=== PATIENT | male | born 1960 | race Caucasian/White ===

== ENCOUNTER 2016-06-19 20:54 | Emergency (ER) | payer OTHER ==
[~2016-06-19] VITALS: Ht 170.2 cm; Wt 54.4 kg
[~2016-06-19 20:54] MED LIST: ZOFRAN4 M1 SL
--- NOTE | 2016-06-19 21:06 | ED AMS/SEIZURE/WEAK/DIZZY ---
History of Present Illness General Chief Complaint: ETOH/Drug Related Complaint Stated Complaint: BIBA ETOH Source: patient, EMS Exam Limitations: no limitations Vital Signs & Intake/Output Vital Signs & Intake/Output Vital Signs Date Time Temp Pulse Resp B/P Pulse O2 O2 Flow FiO2 Ox Delivery Rate 06/19 2340 96.7 64 16 102/63 98 Room Air 06/19 2132 96.2 77 16 94/60 95 Room Air ED Intake and Output 06/20 0000 06/19 1200 Intake Total 0 Output Total Balance 0 Intake, Oral 0 Patient 120 lb Weight Allergies Coded Allergies: NO KNOWN ALLERGIES (05/03/14) NKA PER ANTIBIOTIC ORDER SHEET OF 05/03/14 ([facility]) Reconcile Medications Ondansetron (Zofran Odt) 4 MG ODT 1 ODT SL Q6P PRN NAUSEA Triage Note: PT BIBA FROM HOME S/P DRINKING WITH FAMILY TONIGHT AND HE STOPPED TALKING. PT HAS HX OF ALCOHOL ABUSE. PER EMS PT WAS GIVEN 4 OF ZOFRAN IM. PT IS PRIMARILY [place] SPEAKING. UNSURE AT THIS TIME OF HOW MUCH HE DRANK. Triage Nurses Notes Reviewed? yes Onset: Gradual Duration: minute(s):, hour(s): Timing: single episode today Injury Environment: home Severity: moderate Modifying Factors: Improves With: rest. Associated Symptoms: etoh tonight, increased lethargy HPI: 56 yo gentleman h/o etoh abuse, presents with mental status change. Per the medics, he was drinking vodka in his garage. He became more lethargic and somnolent. His family called 911. The medics arrived. He was arousable to sternal rub, had no focal weakness. No seizure activity. He is otherwise well. Past History Medical History Any Pertinent Medical History? see below for history Neurological: NONE EENT: NONE Cardiovascular: hyperlipidemia Respiratory: NONE Gastrointestinal: NONE Hepatic: NONE Renal: NONE Musculoskeletal: NONE Psychiatric: NONE Endocrine: NONE Surgical History Surgical History: CARPAL TUNNEL Psychosocial History What is your primary language Greenlandic Family History Hx Contributory? No Review of Systems Review of Systems Constitutional: Reports: no symptoms. EENTM: Reports: no symptoms. Respiratory: Reports: no symptoms. Cardiovascular: Reports: no symptoms. GI: Reports: no symptoms. Genitourinary: Reports: no symptoms. Musculoskeletal: Reports: no symptoms. Skin: Reports: no symptoms. Neurological/Psychological: Reports: no symptoms. Hematologic/Endocrine: Reports: no symptoms. Immunologic/Allergic: Reports: no symptoms. All Other Systems: Reviewed and Negative Physical Exam Physical Exam General Appearance: well developed/nourished, lethargic Head: atraumatic, normal appearance Eyes: Bilateral: normal appearance, PERRL, EOMI. Ears, Nose, Throat: normal pharynx, normal ENT inspection Neck: normal inspection, supple, full range of motion Respiratory: normal breath sounds, chest non-tender, no respiratory distress, quiet respiration, lungs clear Cardiovascular: regular rate/rhythm Gastrointestinal: normal bowel sounds, soft, non-tender Back: normal inspection, normal range of motion Extremities: normal range of motion, pelvis stable Neurologic/Psych: no motor/sensory deficits, awake, lethargic but easily arousable. Reflexes: 1+: bicep (R), bicep (L), knee (R), knee (L). Skin: intact, normal color, warm/dry Core Measures ACS in differential dx? No CVA/TIA Diagnosis: No Severe Sepsis Present: No Septic Shock Present: No Progress Differential Diagnosis: alcohol intoxication, dehydration, drug intoxication, electrolyte imbalance, intracranial Hem., intracranial mass/tumor Plan of Care: Orders Procedure Date/time Status URINE DRUG SCREEN FOR ER ONLY 06/19 2106 Complete ETHANOL 06/19 2106 Complete COMPREHENSIVE METABOLIC PANEL 06/19 2106 Complete CBC WITHOUT DIFFERENTIAL 06/19 2106 Complete Laboratory Tests 06/19/160: Urine Opiates Screen < 100.00, Methadone Screen < 40, Barbiturate Screen < 60, Ur Phencyclidine Scrn < 6.00, Amphetamines Screen < 100, U Benzodiazepines Scrn < 85, Urine Cocaine Screen < 50, Urine Cannabis Screen < 5.00 06/19/162121: Anion Gap 14, Estimated GFR > 60, BUN/Creatinine Ratio 12.9, Glucose 125 H, Calcium 9.2, Total Bilirubin 0.4, AST 55, ALT 80 H, Alkaline Phosphatase 78, Total Protein 8.1, Albumin 4.4, Globulin 3.7, Albumin/Globulin Ratio 1.2, CBC w Diff NO MAN DIFF REQ, RBC 4.90, MCV 91.4, MCH 31.5 H, RDW 12.9, MPV 7.6, Gran % 53.6, Lymphocytes % 36.8, Monocytes % 8.6, Eosinophils % 0.5, Basophils % 0.5, Absolute Granulocytes 3.8, Absolute Lymphocytes 2.6, Absolute Monocytes 0.6, Absolute Eosinophils 0, Absolute Basophils 0, PUBS MCHC 34.5, Serum Alcohol 363.0 Diagnostic Imaging: Viewed by Me: CT Scan. Discussed w/RAD: CT Scan. Radiology Impression: head ct w/o contrast... indeterminant finding... full report below, head ct w/ contrast... no acute disease... consistent with blood vessels. Initial ED EKG: none Comments: PATIENT: LEYLA VELAZQUEZ PRESENT AGE: 56 PATIENT ACCOUNT NO: [id number] : 60 LOCATION: [facility] ORDERING PHYSICIAN: NATHAN HOROWITZ MD SERVICE DATE: 06/19/16 EXAM TYPE: CAT - CT HEAD W IV CONTRAST EXAMINATION: CT HEAD WITH CONTRAST CLINICAL INFORMATION: Altered mental status. Questionable mass within the left cavernous sinus. COMPARISON: Noncontrast head CT 06/19/2016. TECHNIQUE: Contiguous axial imaging was performed from the skull base to vertex following the administration of 95 mL of Optiray 320 intravenous contrast. DLP: 600 mGy-cm. FINDINGS: No acute intracranial abnormality. No acute intracranial hemorrhage, mass or mass effect or abnormal extra-axial fluid collections. The density within the dural venous sinuses is within normal limits. The ventricles are normal in size, without hydrocephalus. There are no focal areas of hypoattenuation within a vascular distribution to suggest acute transcortical ischemia. The basilar cisterns are patent. No abnormal intraparenchymal enhancement is identified. There is no abnormal enhancement within the sella or within the cavernous sinuses. The previously noted questionable mass within the left cavernous sinus appears to correspond to vessels within the cavernous sinus. The intracranial vessels appear to be grossly patent and opacified by intravenous contrast. No acute calvarial abnormality is identified. Soft tissues appear unremarkable. The imaged paranasal sinuses and mastoid air cells are well aerated. IMPRESSION: No acute intracranial abnormality. No enhancing intra-axial or extra-axial masses. No enhancing masses within the sella or cavernous sinus. The recently noted questionable mass within the left cavernous sinus appears to correspond to vessels within the cavernous sinus. DICTATED BY: YANIRA MONAEDORON DATE/TIME DICTATED:06/19/162330 [employer] TRUCK BUILDER:GUADALUPE DATE/TIME TRANSCRIBED:06/19/162330 CONFIDENTIAL, DO NOT COPY WITHOUT APPROPRIATE AUTHORIZATION. <Electronically signed in Other Vendor System> SIGNED BY: DORON DOYLE MD 06/19/162337 PATIENT: LEYLA VELAZQUEZ PRESENT AGE: 56 PATIENT ACCOUNT NO: [id number] : 60 LOCATION: [facility] ORDERING PHYSICIAN: NATHAN HOROWITZ MD SERVICE DATE: 06/19/16 EXAM TYPE: CAT - CT HEAD WO IV CONTRAST EXAMINATION: CT HEAD WITHOUT CONTRAST CLINICAL INFORMATION: Altered mental status. COMPARISON: None. TECHNIQUE: Contiguous axial imaging was performed from the skull base to vertex without intravenous administration of contrast. DLP: 600 mGy-cm. FINDINGS: Noncontrast CT imaging of the brain demonstrates questionable mild fullness within the left lateral aspect of the sella/left cavernous sinus measuring approximately 1.5 x 2.1 cm (series 2, image 13). No acute intracranial hemorrhage, mass effect or abnormal extra-axial fluid collections are identified. The density within the dural venous sinuses is within normal limits. The ventricles are normal in size, without hydrocephalus. There are no focal areas of hypoattenuation within a vascular distribution to suggest acute transcortical ischemia. The basilar cisterns are patent. No acute calvarial abnormality is identified. Soft tissues appear unremarkable. The imaged paranasal sinuses and mastoid air cells are well aerated. IMPRESSION: Questionable masslike density within the left lateral aspect of the sella/left cavernous sinus. This finding is indeterminate. An underlying mass or vascular anomaly within this region cannot be entirely excluded. Contrast-enhanced MRI of the brain would be helpful in further evaluation. If contrast-enhanced MRI of the brain is not available, a contrast enhanced CT of the brain would be helpful in further evaluation. This critical result was discussed with Dr. Nathan rose at 10:11 PM on 06/19/2016 and it was ascertained that the content and urgency of the report was understood at the time of direct communication. DICTATED BY: DORON DOYLE MD DATE/TIME DICTATED:06/19/162203 [employer] TR[employer] BUILDER:GUADALUPE DATE/TIME TRANSCRIBED:06/19/162203 CONFIDENTIAL, DO NOT COPY WITHOUT APPROPRIATE AUTHORIZATION. <Electronically signed in Other Vendor System> SIGNED BY: YANIRA MONAE,DORON 06/19/16 3509 Departure Departure Disposition: HOME OR SELF CARE Condition: Stable Clinical Impression Primary Impression: Alcohol intoxication Referrals: AMELIA MONAE,FABIANO Ramírez (PCP/Family) Referred to [facility] as new patient No Departure Forms: Customer Survey General Discharge Information Comments 06/20/16, 0:13am... pt awake and alert, well appearing... i discussed the ct findings with his son and patient. He does not wish detox. He ambulates well and will go home in company of his son. He is stable for discharge. I discussed initial ct scan finding with radiologist who suggested ct scan with iv contrast.
[2016-06-19 21:28] LABS: ABSOLUTE BASOPHIL COUNT 0 /CUMM (0.0-0.2); ABSOLUTE EOSINOPHIL COUNT 0 /CUMM (0.0-0.7); ABSOLUTE GRANULOCYTE CT 3.8 /CUMM (1.4-6.5); ABSOLUTE LYMPH COUNT 2.6 /CUMM (1.2-3.4); ABSOLUTE MONOCYTE COUNT 0.6 /CUMM (0.10-0.60); BASOPHIL % 0.5 % (0.0-2.0); EOSINOPHIL % 0.5 % (0-5); GRANULOCYTE % 53.6 % (42.2-75.2); HEMATOCRIT 44.8 % (42-52); MEAN CORPUSCULAR HGB 31.5 PG (27.0-31.0); MEAN CORPUSCULAR HGB CONC 34.5 G/DL (33.0-37.0); MEAN CORPUSCULAR VOLUME 91.4 FL (80.0-94.0); MEAN PLATELET VOLUME 7.6 FL (7.4-10.4); PLATELET COUNT 329 /CUMM (130-400); RBC DISTRIBUTION WIDTH 12.9 % (11.5-14.5); WHITE BLOOD CELL COUNT 7.2 /CUMM (4.8-10.8)
--- NOTE | 2016-06-19 22:23 | CT SCAN REPORT ---
EXAMINATION: CT HEAD WITHOUT CONTRAST CLINICAL INFORMATION: Altered mental status. COMPARISON: None. TECHNIQUE: Contiguous axial imaging was performed from the skull base to vertex without intravenous administration of contrast. DLP: 600 mGy-cm. FINDINGS: Noncontrast CT imaging of the brain demonstrates questionable mild fullness within the left lateral aspect of the sella/left cavernous sinus measuring approximately 1.5 x 2.1 cm (series 2, image 13). No acute intracranial hemorrhage, mass effect or abnormal extra-axial fluid collections are identified. The density within the dural venous sinuses is within normal limits. The ventricles are normal in size, without hydrocephalus. There are no focal areas of hypoattenuation within a vascular distribution to suggest acute transcortical ischemia. The basilar cisterns are patent. No acute calvarial abnormality is identified. Soft tissues appear unremarkable. The imaged paranasal sinuses and mastoid air cells are well aerated. IMPRESSION: Questionable masslike density within the left lateral aspect of the sella/left cavernous sinus. This finding is indeterminate. An underlying mass or vascular anomaly within this region cannot be entirely excluded. Contrast-enhanced MRI of the brain would be helpful in further evaluation. If contrast-enhanced MRI of the brain is not available, a contrast enhanced CT of the brain would be helpful in further evaluation. This critical result was discussed with Dr. Nathan rose at 10:11 PM on 06/19/2016 and it was ascertained that the content and urgency of the report was understood at the time of direct communication.
--- NOTE | 2016-06-19 23:38 | CT SCAN REPORT ---
EXAMINATION: CT HEAD WITH CONTRAST CLINICAL INFORMATION: Altered mental status. Questionable mass within the left cavernous sinus. COMPARISON: Noncontrast head CT 06/19/2016. TECHNIQUE: Contiguous axial imaging was performed from the skull base to vertex following the administration of 95 mL of Optiray 320 intravenous contrast. DLP: 600 mGy-cm. FINDINGS: No acute intracranial abnormality. No acute intracranial hemorrhage, mass or mass effect or abnormal extra-axial fluid collections. The density within the dural venous sinuses is within normal limits. The ventricles are normal in size, without hydrocephalus. There are no focal areas of hypoattenuation within a vascular distribution to suggest acute transcortical ischemia. The basilar cisterns are patent. No abnormal intraparenchymal enhancement is identified. There is no abnormal enhancement within the sella or within the cavernous sinuses. The previously noted questionable mass within the left cavernous sinus appears to correspond to vessels within the cavernous sinus. The intracranial vessels appear to be grossly patent and opacified by intravenous contrast. No acute calvarial abnormality is identified. Soft tissues appear unremarkable. The imaged paranasal sinuses and mastoid air cells are well aerated. IMPRESSION: No acute intracranial abnormality. No enhancing intra-axial or extra-axial masses. No enhancing masses within the sella or cavernous sinus. The recently noted questionable mass within the left cavernous sinus appears to correspond to vessels within the cavernous sinus.
[2016-06-19 23:40] VITALS: BP 102/63
== END 2016-06-20 00:06 ==
LOC: ERH 20:54
PROVIDERS: Pediatrics
DX: F10.129 Alcohol abuse with intoxication, unspecified (principal); R53.83 Other fatigue; R40.1 Stupor
CPT/HCPCS: G0479; G0480